=== PATIENT | male | born 1995 | race Caucasian/White ===

== ENCOUNTER → 2016-03-08 | Outpatient (CLI) | payer BC ==
--- NOTE | 2016-03-08 21:25 | DI ---
MRI LEFT ANKLE SCAN, 03/08/2016 10:04 AM: Clinical History: Left ankle pain. Posterior tibialis tendon dysfunction. Previous Exam: None at this facility. Technique: Axial, coronal, and sagittal PD and fat saturated PD. There is no soft tissue edema. 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 Minimal increased signal intensity is present in the talus at this site indicating mild reactive edema. Focal convexity is present in the chondral surface with a cystic component. The carti laginous surface appears irregular. A small amount of fluid is in the tendon sheath of the tibialis p osterior tendon extending from the posterior malleolus toward the tarsonavicular bone. Intermediate s ignal intensity indicating chronic tears are present in the posterior syndesmotic ligament, the anter ior and posterior tibiofibular ligaments, and the calcaneofibular ligament. The deltoid ligament is i ntact. There is marked thickening with intermediate signal intensity in the peroneus brevis tendon at the level of the tip of the fibula. The peroneus longus tendon is intact. The cervical ligament, the interosseous talocalcaneal ligament, and the spring ligaments are intact. The transverse tibiofibula r ligament is normal. There is an os trigonum without evidence of edema. Mild increased signal intens ity is present in the distal portion of the Achilles tendon consistent with mild tendinosis. The plan tar fascia is normal. Readin. There is an osteochondral lesion of the talus along the medial margin of the dome. The cartilagin ous surface is irregular and there is focal convexity of the chondral surface with cystic change. The re is associated reactive marrow edema. 2. Mild tendinitis is present in the posterior tibialis tendon. There is severe tendinosis involving the peroneus brevis tendon at the tip of the fibula. Chronic tears are present in the posterior synd esmotic ligament, the anterior and posterior tibiofibular ligaments, and the calcaneofibular ligament . There is mild tendinosis of the Achilles tendon. 3. The anterior syndesmotic ligament, the cervical and interosseous talocalcaneal ligament, the spri ng ligament, the deltoid ligament, and the transverse tibiofibular ligament are normal.
== END ==
LOC: MRI 09:55
PROVIDERS: ATTEND Physician Assistant Surgical
DX: M25.572 Pain in left ankle and joints of left foot (principal); M76.822 Posterior tibial tendinitis, left leg; S93.492A Sprain of other ligament of left ankle, initial encounter
CPT/HCPCS: 73721